=== PATIENT | female | born 1960 | race Caucasian/White ===

== ENCOUNTER → 2017-05-23 | Outpatient (CLI) | payer BC ==
--- NOTE | 2017-05-23 10:46 | XR ---
EXAMINATION TYPE: XR chest 2V DATE OF EXAM: 05/23/2017 COMPARISON: 05/06/2015 TECHNIQUE: PA and lateral views submitted. HISTORY: Chest pain FINDINGS: The lungs are clear and there is no pneumothorax, pleural effusion, or focal pneumonia. Vague nodul e in the right midlung. Atherosclerotic change aorta IMPRESSION: 1. No acute process. Vague nodule in the right midlung. This likely accounts for the nodule seen by c hest CT.
== END ==
LOC: RADXRMAIN 10:11
PROVIDERS: ATTEND Family Medicine
DX: R91.1 Solitary pulmonary nodule (principal)
CPT/HCPCS: 71020

== ENCOUNTER → 2017-08-15 | Outpatient (CLI) | payer BC ==
--- NOTE | 2017-08-18 10:38 | MM ---
Reason for exam: screening (asymptomatic). Last mammogram was performed 1 year and 10 months ago. History: Patient is postmenopausal. Physical Findings: A clinical breast exam by your physician is recommended on an annual basis and results should be correlated with mammographic findings. MG Screening Mammo w CAD Bilateral CC and MLO view(s) were taken. Prior study comparison: October 09, 2015, mammogram, performed at [facility]. The breast tissue is heterogeneously dense. This may lower the sensitivity of mammography. Developing asymmetry anterior depth inner lower quadrant. ASSESSMENT: Incomplete: need additional imaging evaluation, BI-RAD 0 RECOMMENDATION: Special view mammogram of the left breast. If lesion persists on supplemental views, image directed ultrasound is recommended. [facility] will attempt to contact patient to return for supplemental views and ultrasound if indicated.
== END | disposition home or self-care (01) ==
LOC: RADMAMWWP 09:59
PROVIDERS: ATTEND Family Medicine
DX: Z12.31 Encounter for screening mammogram for malignant neoplasm of breast (principal)
CPT/HCPCS: 77067

== ENCOUNTER → 2017-08-26 | Outpatient (CLI) | payer BC ==
--- NOTE | 2017-08-26 14:23 | MM ---
Reason for exam: additional evaluation requested from abnormal screening. Last mammogram was performed less than 1 month ago. History: Patient is postmenopausal. Physical Findings: Nurse did not find any significant physical abnormalities on exam. MG Work Up Mamm w CAD LT CC and MLO view(s) were taken of the left breast. Prior study comparison: August 15, 2017, bilateral MG screening mammo w CAD. October 09, 2015, mammogram, performed at [facility]. The breast tissue is heterogeneously dense. This may lower the sensitivity of mammography. Asymmetric breast tissue persists. These results were verbally communicated with the patient and result sheet given to the patient on 08/26/17. ASSESSMENT: Incomplete: need additional imaging evaluation, BI-RAD 0 RECOMMENDATION: Ultrasound of the left breast.
--- NOTE | 2017-08-26 14:25 | USB ---
Reason for exam: additional evaluation requested from abnormal screening. History: Patient is postmenopausal. US Breast Workup Limited LT Left breast ultrasound demonstrates no cystic or solid lesion seen. These results were verbally communicated with the patient and result sheet given to the patient on 08/26/17. ASSESSMENT: Negative, BI-RAD 1 RECOMMENDATION: Follow-up diagnostic mammogram of the left breast in 6 months.
== END | disposition home or self-care (01) ==
LOC: RADMAMWWP 13:14
PROVIDERS: ATTEND Family Medicine
DX: R92.8 Other abnormal and inconclusive findings on diagnostic imaging of breast (principal)
CPT/HCPCS: 77065

== ENCOUNTER → 2018-05-23 | Outpatient (CLI) | payer BC ==
[~2018-05-23] MED LIST: REGADENOSON 0.4 MG/5 ML SYRINGE IV ONE
--- NOTE | 2018-05-23 11:31 | NM ---
EXAMINATION TYPE: NM stress lexiscan cardiolite DATE OF EXAM: 05/23/2018 COMPARISON: 05/07/2015 HISTORY: Chest pain TECHNIQUE: After the intravenous administration of 10.3 mCi Tc 99m Sestamibi - Cardiolite resting SP ECT images acquired 60 minutes post injection. The patient received 0.4mg Lexiscan, 24.9 mCi Tc 99m Sestamibi - Stress images obtained [address] injection FINDINGS: Review of stress and rest SPECT images demonstrates reduced uptake involving the apex of the myocardi um which appears fixed. Tiny area of stress-induced reversibility not excluded.. Gated analysis show s normal wall motion with an estimated left ventricular ejection fraction of 46 %. IMPRESSION: 1. There now appears to be a fixed area of perfusion abnormality involving the apex of the myocardium suggestive of previous infarction. A tiny area of reversibility is not entirely excluded. Correlate clinically. 2. Ejection fraction is 46%.
== END | disposition home or self-care (01) ==
LOC: RADNMMAIN 07:47
PROVIDERS: ATTEND Internal Medicine Interventional Cardiology
DX: I25.10 Atherosclerotic heart disease of native coronary artery without angina pectoris (principal); I10 Essential (primary) hypertension
CPT/HCPCS: 93017; 78452; A9500; J2785

== ENCOUNTER → 2018-05-25 | Outpatient (CLI) | payer BC ==
--- NOTE | 2018-05-24 11:21 | P.STRESS ---
- Stress Test Note Stress Test Results/Findings: Exam Performed: Exam Date: Reason for Exam: Height: Weight: Protocol: Stage: Duration of Exercise: Resting Heart Rate: Resting Blood Pressure: Maximum Achieved Heart Rate: Maximum Achieved Blood Pressure: 85% PMHR: 100% PMHR: METS: Technologist Comment: Stress Test Results/Findings: Baseline heart rate 63 beats a minute Baseline blood pressure 119/92 mmHg Baseline twelve-lead ECG shows normal sinus rhythm normal chronic intervals Patient received Lexiscan infusion per protocol there was no ECG is for ischemia and arrhythmias are noted new proportional B report separately
--- NOTE | 2018-05-26 10:12 | ECHOF ---
Referral Reason:I10 Hypertension, CAD MEASUREMENTS -------- HEIGHT: 170.2 cm WEIGHT: 84.4 kg BP: 119/66 RVIDd: 2.7 cm (< 3.3) IVSd: 1.2 cm (0.6 - 1.1) LVIDd: 4.3 cm (3.9 - 5.3) LVPWd: 1.2 cm (0.6 - 1.1) IVSs: 1.8 cm LVIDs: 2.6 cm LVPWs: 1.3 cm LA Diam: 3.2 cm (2.7 - 3.8) LAESV Index (A-L): 27.23 ml/m Ao Diam: 3.1 cm (2.0 - 3.7) AV Cusp: 2.1 cm (1.5 - 2.6) MV EXCURSION: 13.991 mm (> 18.000) MV EF SLOPE: 62 mm/s (70 - 150) EPSS: 0.6 cm MV E Darrell: 0.99 m/s MV DecT: 232 ms MV A Darrell: 0.91 m/s MV E/A Ratio: 1.10 RAP: 5.00 mmHg RVSP: 21.56 mmHg FINDINGS -------- Sinus rhythm. This was a technically adequate study. The left ventricular size is normal. There is borderline concentric left ventricular hypertrophy. Overall left ventricular systolic function is normal with, an EF between 55 - 60 %. Sigmoid shaped septum with focal hypertrophy of the basal septum. The remaining wall thickness is normal. The right ventricle is normal in size. Normal LA size by volume 22+/-6 ml/m2. The right atrium is normal in size. The aortic valve is trileaflet and appears structurally normal. The mitral valve is normal. Mild tricuspid regurgitation present. Right ventricular systolic pressure is normal at < 35 mmHg. Trace/mild (physiologic) pulmonic regurgitation. The aortic root size is normal. Normal inferior vena cava with normal inspiratory collapse consistent with estimated right atrial pre ssure of 5 mmHg. There is no pericardial effusion. CONCLUSIONS -------- 1. Sinus rhythm. 2. This was a technically adequate study. 3. The left ventricular size is normal. 4. There is borderline concentric left ventricular hypertrophy. 5. Overall left ventricular systolic function is normal with, an EF between 55 - 60 %. 6. Sigmoid shaped septum with focal hypertrophy of the basal septum. The remaining wall thickness is normal. 7. The right ventricle is normal in size. 8. Normal LA size by volume 22+/-6 ml/m2. 9. The right atrium is normal in size. 10. The aortic valve is trileaflet and appears structurally normal. 11. The mitral valve is normal. 12. Mild tricuspid regurgitation present. 13. Right ventricular systolic pressure is normal at < 35 mmHg. 14. Trace/mild (physiologic) pulmonic regurgitation. 15. The aortic root size is normal. 16. Normal inferior vena cava with normal inspiratory collapse consistent with estimated right atrial pressure of 5 mmHg. 17. There is no pericardial effusion. PARTITION ASSEMBLY MACHINE OPERATOR: Natali Melendez RDCS
== END | disposition home or self-care (01) ==
LOC: RADECHMAIN 13:02
PROVIDERS: ATTEND Internal Medicine Interventional Cardiology
DX: I07.1 Rheumatic tricuspid insufficiency (principal); I37.1 Nonrheumatic pulmonary valve insufficiency
CPT/HCPCS: 93306

== ENCOUNTER → 2018-12-12 | Outpatient (CLI) | payer BC ==
--- NOTE | 2018-12-12 15:56 | US ---
EXAMINATION TYPE: US abdomen complete DATE OF EXAM: 12/12/2018 COMPARISON: CLINICAL HISTORY: R18.8 Other ascites. Abdomen pressure, NPO, hx liver cyst EXAM MEASUREMENTS: Liver Length: 16.8 cm Gallbladder Wall: 0.2 cm CHD: 0.6 cm Spleen: 8.3 cm Right Kidney: 8.9 x 3.8 x 3.6 cm Left Kidney: 9.2 x 4.3 x 4.8 cm Pancreas: Head and body the pancreas is normal. Tail of pancreas obscured by bowel gas. Liver: right lobe anterior cystic appearing cluster visualized - 2.3 x 2.7 x 1.8 cm Gallbladder: wnl Evidence for sonographic Saldivar's sign: neg CBD: Obscured by overlying bowel gas CHD: wnl Spleen: wnl Right Kidney: wnl Left Kidney: appears lobular in appearance Upper IVC: wnl Abd Aorta: Proximal not visualized due to overlying bowel gas. No AAA visualized. IMPRESSION: 1. Visualized abdomen ultrasound is unremarkable.
== END | disposition home or self-care (01) ==
LOC: RADUSWWP 07:43
PROVIDERS: ATTEND Family Medicine
DX: R18.8 Other ascites (principal); R10.9 Unspecified abdominal pain; Z86.03 Personal history of neoplasm of uncertain behavior
CPT/HCPCS: 76700

== ENCOUNTER → 2019-10-04 | Outpatient (CLI) | payer BC ==
--- NOTE | 2019-10-04 10:47 | US ---
EXAMINATION TYPE: US gallbladder DATE OF EXAM: 10/04/2019 COMPARISON: 12/12/2018 ultrasound CLINICAL HISTORY: R94.5 elevated liver enzymes. EXAM MEASUREMENTS: Liver Length: 15.5 cm Gallbladder Wall: 0.2 cm CBD: 0.6 cm Right Kidney: 9.1 x 3.2 x 3.3 cm Pancreas: wnl Liver: Right lobe cystic appearing lesion - 2.4 x 1.9 x 3.0 cm. Previous measurement 2.3 x 1.8 x 2.7 cm. This has good through transmission. The jackson are not smooth cannot be classified as a simple cy st. Monitoring is recommended. Gallbladder: wnl Evidence for sonographic Saldivar's sign: neg CBD: wnl Right Kidney: No hydronephrosis or masses seen IMPRESSION: 1. Cystlike structure within the right lobe liver. Jackson are not smooth this cannot be simple cyst. F ollow-up monitoring is recommended.
== END | disposition home or self-care (01) ==
LOC: RADUSWWP 10:13
PROVIDERS: ATTEND Family Medicine
DX: R94.5 Abnormal results of liver function studies (principal)
CPT/HCPCS: 76705

== ENCOUNTER → 2020-03-11 | Outpatient (CLI) | payer BC | END | disposition home or self-care (01) | LOC: LABWHC1 03-10 14:39 | PROVIDERS: ATTEND Pediatrics Pediatric Infectious Diseases | DX: Z20.828 Contact with and (suspected) exposure to other viral communicable diseases (principal) | CPT/HCPCS: 87635; U0003; C9803 ==

== ENCOUNTER → 2020-03-12 | Outpatient (CLI) | payer BC | END | disposition home or self-care (01) | LOC: LABWHC1 14:00 | PROVIDERS: ATTEND Pediatrics Pediatric Infectious Diseases | DX: Z11.59 Encounter for screening for other viral diseases (principal) | CPT/HCPCS: 87635; C9803 ==

== ENCOUNTER 2020-06-16 21:41 | Emergency (ER) | payer BC ==
[2020-06-16 21:48] VITALS: BP 193/79
--- NOTE | 2020-06-16 22:12 | ED ---
Abdominal Pain HPI - General Chief Complaint: Abdominal Pain Stated Complaint: Abd pain Time Seen by Provider: 06/16/20 22:07 Source: patient Mode of arrival: ambulatory Limitations: no limitations - History of Present Illness Initial Comments: Betsey is a C1-year-old female who presents ER today for evaluation of abdominal pain. Patient has a history of open abdominal surgery approximately 4 years ago to remove a non-malignant mass. Patient has a large scar down the middle of her abdomen and states that for the past 2 months she's noted the development of a hernia at the top of the scar. For the past week she's noted that the hernia area seems to get tender however today the pain is significantly worsened. She reports she has episodes of pain that are severe stabbing she can't move when these episodes of pain happened. She reports her last bowel movement was earlier today and was normal in color caliber and consistency. she has had no vomiting. - Related Data Home Medications Medication Instructions Recorded Confirmed lisinopriL [Prinivil] 20 mg PO DAILY 01/20/16 06/16/20 Atorvastatin [Lipitor] 80 mg PO DAILY 06/16/20 06/16/20 Ezetimibe [Zetia] 10 mg PO DAILY 06/16/20 06/16/20 Metoprolol Succinate [Toprol XL] 100 mg PO DAILY 06/16/20 06/16/20 Vitamin B Complex 1 cap PO DAILY 06/16/20 06/16/20 Previous Rx's Medication Instructions Recorded Aspirin EC [Ecotrin Low Dose] 81 mg PO DAILY tablet. 05/07/15 Clopidogrel [Plavix] 75 mg PO DAILY tab 05/07/15 hydroCHLOROthiazide [Hydrodiuril] 25 mg PO DAILY tab 05/07/15 Allergies Allergy/AdvReac Type Severity Reaction Status Date / Time No Known Allergies Allergy Verified 06/16/20 22:19 Review of Systems ROS Statement: Those systems with pertinent positive or pertinent negative responses have been documented in the HPI. ROS Other: All systems not noted in ROS Statement are negative. Past Medical History Past Medical History: CVA/TIA, Hyperlipidemia, Hypertension, Myocardial Infarction ([place]) Additional Past Medical History / Comment(s): [place] 2011, CHILD HAD A MURMUR,SCIATICA,HIATAL HERNIA, RT CAROTID ARTERY HAS BLOCKAGE BUT NO SX YET, DR ALEX. CVA 2014 Last Myocardial Infarction Date:: 2000 History of Any Multi-Drug Resistant Organisms: None Reported Past Surgical History: Adenoidectomy, Heart Catheterization With Stent, Tonsillectomy, Tubal Ligation Additional Past Surgical History / Comment(s): HEART CATH WITH STENT 2000. HEART CATH 2001, 2000 HEART CATH AT [place], STARTED JOHNS TOTAL OF 3 STENTS Past Anesthesia/Blood Transfusion Reactions: No Reported Reaction Additional Past Anesthesia/Blood Transfusion Reaction / Comment(s): CLAUSTERPHOBIA Date of Last Stent Placement:: 2000 Past Psychological History: No Psychological Hx Reported Past Alcohol Use History: None Reported Past Drug Use History: None Reported - Past Family History Mother Family Medical History: Cancer, Congestive Heart Failure (CHF), CVA/TIA, Hyperlipidemia, Hypertension Additional Family Medical History / Comment(s): COLON CANCER, OBESITY Father Family Medical History: Myocardial Infarction ([place]) Additional Family Medical History / Comment(s): AGE 54 FROM [place] General Exam - General Exam Comments Initial Comments: Physical Exam GENERAL: Patient is well-developed and well-nourished. Patient is nontoxic and well-hydrated Appears mildly uncomfortable HENT: Normocephalic, Atraumatic. EYES: PERRL, EOMI PULMONARY: Unlabored respirations CARDIOVASCULAR: RRR Warm and well perfused extremities ABDOMEN: Firm incisional hernia at superior edge of surgical scar - no overlying skin color changes SKIN: No rashes or bruising : Deferred NEUROLOGIC: Alert and oriented Normal speech Normal gait MUSCULOSKELETAL: Moving all extremities with no apparent injury PSYCHIATRIC: No SI/HI Limitations: no limitations Course Vital Signs 06/16/20 06/17/20 21:46 01:46 Temperature 98.6 F 98.7 F Pulse Rate 91 80 Respiratory 18 16 Rate Blood Pressure 193/79 193/79 O2 Sat by Pulse 96 95 Oximetry Medical Decision Making - Medical Decision Making she was seen and evaluated, history was obtained from patient History and physical exam are concerning for incarcerated incisional hernia Labs and CT were ordered CT confirms an incarcerated incisional hernia Patient given Dilaudid ice was applied to the hernia, Patient was laid flat and the hernia was able to be reduced with minimal difficulty Patient was advised to wear an abdominal binder, follow up with general surgeon for plans for surgical repair he patient was educated on how to reduce her hernia and expressed understanding All questions pertaining care were answered return parameters were discussed the patient was discharged home in stable condition - Lab Data Result diagrams: 06/16/20 22:49 06/16/20 22:49 Lab Results 06/16/20 06/16/20 06/16/20 Range/Units 22:49 22:49 22:49 WBC 12.7 H (3.8-10.6) k/uL RBC 4.76 (3.80-5.40) m/uL Hgb 12.0 (11.4-16.0) gm/dL Hct 37.9 (34.0-46.0) % MCV 79.5 L (80.0-100.0) fL MCH 25.3 (25.0-35.0) pg MCHC 31.8 (31.0-37.0) g/dL RDW 14.7 (11.5-15.5) % Plt Count 313 (150-450) k/uL Neutrophils % 66 % Lymphocytes % 23 % Monocytes % 4 % Eosinophils % 5 % Basophils % 1 % Neutrophils # 8.4 H (1.3-7.7) k/uL Lymphocytes # 2.9 (1.0-4.8) k/uL Monocytes # 0.5 (0-1.0) k/uL Eosinophils # 0.7 (0-0.7) k/uL Basophils # 0.1 (0-0.2) k/uL Sodium 139 (137-145) mmol/L Potassium 4.0 (3.5-5.1) mmol/L Chloride 106 (98-107) mmol/L Carbon Dioxide 25 (22-30) mmol/L Anion Gap 8 mmol/L BUN 23 H (7-17) mg/dL Creatinine 0.96 (0.52-1.04) mg/dL Est GFR (CKD-EPI)AfAm 74 (>60 ml/min/1.73 sqM) Est GFR (CKD-EPI)NonAf 64 (>60 ml/min/1.73 sqM) Glucose 118 H (74-99) mg/dL Plasma Lactic Acid Paulie (0.7-2.0) mmol/L Calcium 9.3 (8.4-10.2) mg/dL Total Bilirubin 0.4 (0.2-1.3) mg/dL AST 25 (14-36) U/L ALT 16 (4-34) U/L Alkaline Phosphatase 139 H (38-126) U/L Total Protein 7.0 (6.3-8.2) g/dL Albumin 4.0 (3.5-5.0) g/dL Lipase 321 H (23-300) U/L Urine Color Yellow Urine Appearance Clear (Clear) Urine pH 5.5 (5.0-8.0) Ur Specific Pierce 1.021 (1.001-1.035) Urine Protein Negative (Negative) Urine Glucose (UA) Negative (Negative) Urine Ketones Negative (Negative) Urine Blood Negative (Negative) Urine Nitrite Negative (Negative) Urine Bilirubin Negative (Negative) Urine Urobilinogen <2.0 (<2.0) mg/dL Ur Leukocyte Esterase Trace H (Negative) Urine RBC <1 (0-5) /hpf Urine WBC 2 (0-5) /hpf Ur Squamous Epith Cells 1 (0-4) /hpf Hyaline Casts 1 (0-2) /lpf Urine Mucus Rare H (None) /hpf 06/16/20 Range/Units 22:49 WBC (3.8-10.6) k/uL RBC (3.80-5.40) m/uL Hgb (11.4-16.0) gm/dL Hct (34.0-46.0) % MCV (80.0-100.0) fL MCH (25.0-35.0) pg MCHC (31.0-37.0) g/dL RDW (11.5-15.5) % Plt Count (150-450) k/uL Neutrophils % % Lymphocytes % % Monocytes % % Eosinophils % % Basophils % % Neutrophils # (1.3-7.7) k/uL Lymphocytes # (1.0-4.8) k/uL Monocytes # (0-1.0) k/uL Eosinophils # (0-0.7) k/uL Basophils # (0-0.2) k/uL Sodium (137-145) mmol/L Potassium (3.5-5.1) mmol/L Chloride (98-107) mmol/L Carbon Dioxide (22-30) mmol/L Anion Gap mmol/L BUN (7-17) mg/dL Creatinine (0.52-1.04) mg/dL Est GFR (CKD-EPI)AfAm (>60 ml/min/1.73 sqM) Est GFR (CKD-EPI)NonAf (>60 ml/min/1.73 sqM) Glucose (74-99) mg/dL Plasma Lactic Acid Paulie 1.2 (0.7-2.0) mmol/L Calcium (8.4-10.2) mg/dL Total Bilirubin (0.2-1.3) mg/dL AST (14-36) U/L ALT (4-34) U/L Alkaline Phosphatase (38-126) U/L Total Protein (6.3-8.2) g/dL Albumin (3.5-5.0) g/dL Lipase (23-300) U/L Urine Color Urine Appearance (Clear) Urine pH (5.0-8.0) Ur Specific Pierce (1.001-1.035) Urine Protein (Negative) Urine Glucose (UA) (Negative) Urine Ketones (Negative) Urine Blood (Negative) Urine Nitrite (Negative) Urine Bilirubin (Negative) Urine Urobilinogen (<2.0) mg/dL Ur Leukocyte Esterase (Negative) Urine RBC (0-5) /hpf Urine WBC (0-5) /hpf Ur Squamous Epith Cells (0-4) /hpf Hyaline Casts (0-2) /lpf Urine Mucus (None) /hpf Disposition Clinical Impression: Incisional hernia Disposition: HOME SELF-CARE Condition: Stable Additional Instructions: You have a hernia at the top of your incision, this will likely require surgical repair Avoid heavy lifting You can wear a girdle or abdominal binder for support If the hernia pops out, lay flat with knees bent and attempt to push it back in Return to the ER for any worsening pain or inability to reduce the hernia when it is pushed out Is patient prescribed a controlled substance at d/c from ED?: No Referrals: Rachel Montoya DO [Primary Care Provider] - 1-2 days Aureliano French MD [STAFF PHYSICIAN] - 1-2 days Lien Kemp MD [STAFF PHYSICIAN] - 1-2 days Arnaldo Lan MD [Medical Doctor] - 1-2 days
[2020-06-16] MEDS ORDERED: SODIUM CHLORIDE 0.9% 1,000 ML IV STA (22:18)
[2020-06-16 23:01] LABS: Basophils # (A) 0.1 k/uL (0-0.2); Basophils % (A) 1 %; Eosinophils # (A) 0.7 k/uL (0-0.7); Eosinophils % (A) 5 %; HCT 37.9 % (34.0-46.0); Lymphocytes # (A) 2.9 k/uL (1.0-4.8); Lymphocytes % (A) 23 %; MCH 25.3 pg (25.0-35.0); MCHC 31.8 g/dL (31.0-37.0); MCV 79.5 fL (80.0-100.0); Monocytes # (A) 0.5 k/uL (0-1.0); Monocytes % (A) 4 %; Neutrophils # (A) 8.4 k/uL (1.3-7.7); Neutrophils % (A) 66 %; Platelet Count 313 k/uL (150-450); RBC 4.76 m/uL (3.80-5.40); RDW 14.7 % (11.5-15.5); WBC 12.7 k/uL (3.8-10.6)
[2020-06-16 23:10] LABS: Appearance,Urine Clear (Clear); Bilirubin,Urine Negative (Negative); Blood,Urine Negative (Negative); Color,Urine Yellow; Glucose,Urine (UA) Negative (Negative); Hyaline Casts,Urine 1 /lpf (0-2); Ketones,Urine Negative (Negative); Leukocyte Esterase,Urine Trace (Negative); Mucus,Urine Rare /hpf; Nitrite,Urine Negative (Negative); PH, Urine 5.5 (5.0-8.0); Protein,Urine Negative (Negative); RBC,Urine <1 /hpf (0-5); Specific Gravity,Urine 1.021 (1.001-1.035); Squamous Epithelial Cell,Urine 1 /hpf (0-4); Urobilinogen,Urine <2.0 mg/dL (<2.0); WBC,Urine 2 /hpf (0-5)
[2020-06-16 23:11] LABS: Calcium 9.3 mg/dL (8.4-10.2); Total Bilirubin 0.4 mg/dL (0.2-1.3)
--- NOTE | 2020-06-16 23:45 | CT ---
EXAMINATION TYPE: CT abdomen pelvis w con DATE OF EXAM: 06/16/2020 COMPARISON: 05/06/2016 HISTORY: Abdominal pain CT DLP: mGycm Automated exposure control for dose reduction was used. CONTRAST: Performed , patient injected with mL of . Contrast was Isovue 100 mL. Lung bases show a 2 cm partly calcified pleural-based mass in the anterior right middle lobe. There i s prominent pericardial fat pad on the right side. There is no pleural effusion. There is moderate hi atal hernia. Heart size is normal. The stomach has normal size. There is 3 cm cyst in the lateral right lobe of the liver. Gallbladder appears normal. The bile ducts are not dilated. Spleen is intact. There is no pancreatic mass. There is no adrenal mass. Kidneys show satisfactory contrast opacification. There is no hydronephrosi s. There is no inguinal hernia. Bladder distends smoothly. There is no free fluid in the pelvis. Ther e are scattered sigmoid diverticula without sign of diverticulitis. Appendix appears to be posterior and appears normal. There is no ascites or free air. There is incarcerated epigastric ventral hernia that contains transverse colon. I do not see definite sign of a bowel obstruction. There are some inflammatory changes in the fat surrounding the hernia s ac. Abdominal aorta is atheromatous. Lumbar vertebra have normal alignment. There is no compression fract ure. Bony pelvis is intact. Hip joints are intact. IMPRESSION: Incarcerated epigastric ventral hernia containing transverse colon. No definite evidence for a bowel obstruction. Hernia appears new compared to old exam. Pleural-based mass in the right middle lobe on the chest wall that is stable compared to 2016 and the refore benign. Mild colonic diverticulosis without diverticulitis.
[2020-06-16] MEDS ORDERED: HYDROmorphone 0.5 MG/0.5 ML SYRINGE IVP STA (23:49)
[2020-06-16] MEDS ORDERED: HYDROmorphone 1 MG/ML 1 ML SYRINGE IVP STA (23:57)
[2020-06-17] MEDS ORDERED: cloNIDine HCL 0.1 MG TAB PO STA (01:03)
[2020-06-17 01:47] VITALS: PULSE 80; RESP 16; TEMP 98.7
== END 2020-06-17 01:47 | disposition home or self-care (01) ==
LOC: EC 21:41
DX: K43.0 Incisional hernia with obstruction, without gangrene (principal); I10 Essential (primary) hypertension; E78.5 Hyperlipidemia, unspecified; I25.2 Old myocardial infarction; Z79.899 Other long term (current) drug therapy; Z86.73 Personal history of transient ischemic attack (TIA), and cerebral infarction without residual deficits; Z98.51 Tubal ligation status
CPT/HCPCS: 36415; 80053; 83605; 83690; 85025; 81001; 74177; 99284; 96374; 96361; J1170; Q9967

== ENCOUNTER 2020-09-17 16:08 | Emergency (ER) | payer BC, OTHER ==
[2020-09-17 16:26] VITALS: BP 164/110; PULSE 77; RESP 18; TEMP 98.7
--- NOTE | 2020-09-17 17:07 | ED ---
General Adult HPI - General Chief complaint: Extremity Injury, Upper Stated complaint: hand injury [facility] Time Seen by Provider: 09/17/20 16:39 Source: patient, RN notes reviewed, old records reviewed Mode of arrival: ambulatory Limitations: no limitations - History of Present Illness Initial comments: 60-year-old female presents for evaluation of right hand injury. Patient states she got her right hand and wrist caught in an elevator and did need to pull her hand from the doors. She has pain predominantly on the palmar side of her wrist and proximal hand. Patient states she is on aspirin and Plavix with history of CAD and CVA in the past. She denies any other injury. - Related Data Home Medications Medication Instructions Recorded Confirmed lisinopriL [Prinivil] 20 mg PO DAILY 01/20/16 06/16/20 Atorvastatin [Lipitor] 80 mg PO DAILY 06/16/20 06/16/20 Ezetimibe [Zetia] 10 mg PO DAILY 06/16/20 06/16/20 Metoprolol Succinate [Toprol XL] 100 mg PO DAILY 06/16/20 06/16/20 Vitamin B Complex 1 cap PO DAILY 06/16/20 06/16/20 Previous Rx's Medication Instructions Recorded Aspirin EC [Ecotrin Low Dose] 81 mg PO DAILY tablet. 05/07/15 Clopidogrel [Plavix] 75 mg PO DAILY tab 05/07/15 hydroCHLOROthiazide [Hydrodiuril] 25 mg PO DAILY tab 05/07/15 Allergies Allergy/AdvReac Type Severity Reaction Status Date / Time No Known Allergies Allergy Verified 09/17/20 16:24 Review of Systems ROS Statement: Those systems with pertinent positive or pertinent negative responses have been documented in the HPI. ROS Other: All systems not noted in ROS Statement are negative. Past Medical History Past Medical History: CVA/TIA, Hyperlipidemia, Hypertension, Myocardial Infarction ([place]) Additional Past Medical History / Comment(s): [place] 2011, CHILD HAD A MURMUR,SCIATICA,HIATAL HERNIA, RT CAROTID ARTERY HAS BLOCKAGE BUT NO SX YET, DR ALEX. CVA 2014 Last Myocardial Infarction Date:: 2000 History of Any Multi-Drug Resistant Organisms: None Reported Past Surgical History: Adenoidectomy, Heart Catheterization With Stent, Tonsillectomy, Tubal Ligation Additional Past Surgical History / Comment(s): HEART CATH WITH STENT 2000. HEART CATH 2001, 2000 HEART CATH AT [place],PT STARTED [facility]OH[facility] TOTAL OF 3 STENTS Past Anesthesia/Blood Transfusion Reactions: No Reported Reaction Additional Past Anesthesia/Blood Transfusion Reaction / Comment(s): CL AUSTERPHOBIA Date of Last Stent Placement:: 2000 Past Psychological History: No Psychological Hx Reported Smoking Status: Never smoker Past Alcohol Use History: None Reported Past Drug Use History: None Reported - Past Family History Mother Family Medical History: Cancer, Congestive Heart Failure (CHF), CVA/TIA, Hyperlipidemia, Hypertension Additional Family Medical History / Comment(s): COLON CANCER, OBESITY Father Family Medical History: Myocardial Infarction ([place]) Additional Family Medical History / Comment(s): AGE 54 FROM [place] General Exam Limitations: no limitations General appearance: alert, in no apparent distress Head exam: Present: atraumatic, normocephalic Eye exam: Present: normal appearance, PERRL ENT exam: Present: normal exam Neck exam: Present: normal inspection. Absent: tenderness, meningismus Respiratory exam: Present: normal lung sounds bilaterally. Absent: respiratory distress, wheezes Cardiovascular Exam: Present: regular rate, normal rhythm GI/Abdominal exam: Absent: distended Extremities exam: Present: joint swelling (There is swelling and hematoma on the dorsal surface of the wrist and proximal hand, no laceration or pleural effusion. She has bony tenderness over the metacarpals on the plantar surface, no snuffbox tenderness, no gross deformity.) Course Vital Signs 09/17/20 16:24 Temperature 98.7 F Pulse Rate 77 Respiratory 18 Rate Blood Pressure 164/110 O2 Sat by Pulse 98 Oximetry Procedures - Orthopedic Splinting/Casting Injury #1 Side: right Upper Extremity Injury Location: wrist Upper Extremity Immobilizer: Shailesh wrap Additional Comments: Patient is neurovascularly intact both before and after applying Shailesh wrap Medical Decision Making - Medical Decision Making 60-year-old female with right hand injury, crush injury and elevated worse. There is swelling and hematoma on the dorsal surface of the hand just distal to the wrist. She has normal sensation distally, normal cap refill, normal pulses. No snuffbox tenderness. X-rays performed these are negative for acute bony abnormality. Patient is placed in an Shailesh wrap. Disposition Clinical Impression: Contusion of hand, right, Wrist sprain Disposition: HOME SELF-CARE Condition: Good Instructions (If sedation given, give patient instructions): Wrist Injury (ED), Hand Sprain (ED), Contusion in Adults (ED) Is patient prescribed a controlled substance at d/c from ED?: No Referrals: Rachel Montoya DO [Primary Care Provider] - 1-2 days Time of Disposition: 17:07
--- NOTE | 2020-09-17 17:14 | XR ---
RESULT: HISTORY: trauma with pain. TECHNIQUE: 3 views of the right hand. 3 views of the right wrist. COMPARISON: None. FINDINGS: There is no acute fracture or dislocation. There are moderate degenerative changes of the thumb basal joints. Otherwise scattered mild elsewhere. No radiopaque foreign body. IMPRESSION: No acute osseous abnormality.
== END 2020-09-17 17:35 | disposition home or self-care (01) ==
LOC: EC 16:08
DX: S63.501A Unspecified sprain of right wrist, initial encounter (principal); I10 Essential (primary) hypertension; E78.5 Hyperlipidemia, unspecified; I25.2 Old myocardial infarction; I25.10 Atherosclerotic heart disease of native coronary artery without angina pectoris; Z79.82 Long term (current) use of aspirin; Z79.02 Long term (current) use of antithrombotics/antiplatelets; Z79.899 Other long term (current) drug therapy; Z86.73 Personal history of transient ischemic attack (TIA), and cerebral infarction without residual deficits; Z95.5 Presence of coronary angioplasty implant and graft; W23.0XXA Caught, crushed, jammed, or pinched between moving objects, initial encounter; Y92.69 Other specified industrial and construction area as the place of occurrence of the external cause; Y99.0 Civilian activity done for income or pay
CPT/HCPCS: 99284

== ENCOUNTER → 2020-09-25 | Outpatient (CLI) | payer OTHER ==
--- NOTE | 2020-09-25 15:12 | XR ---
EXAMINATION TYPE: XR shoulder complete 3 views RT, XR hand complete 3 views RT DATE OF EXAM: 09/25/2020 Comparison: 09/17/2020 Clinical History: 60-year-old female S67.21, S43.401D Findings: Right shoulder: AC joint appears intact. Subacromial space preserved. No tendinous or bursal calcifications. No acute fracture, subluxation, or dislocation seen. Right hand: Mild degenerative change at the triscaphe joint. No acute fracture, subluxation, or dislocation seen. Moderate osteoarthritic change at the second DIP joint. Impression: 1. Right shoulder: No acute osseous abnormality seen. 2. Right hand: No acute osseous abnormality seen.
== END | disposition home or self-care (01) ==
LOC: RADXRMAIN 14:12
PROVIDERS: ATTEND Emergency Medicine
DX: S67.21XD Crushing injury of right hand, subsequent encounter (principal); S43.401D Unspecified sprain of right shoulder joint, subsequent encounter

== ENCOUNTER → 2021-02-24 | Outpatient (CLI) | payer BC ==
[2021-02-24 15:29] LABS: HCT 37.3 % (34.0-46.0); MCH 25.8 pg (25.0-35.0); MCHC 32.3 g/dL (31.0-37.0); Mean Platelet Volume 7.1; Platelet Count 327 k/uL (150-450); RBC 4.66 m/uL (3.80-5.40); RDW 14.5 % (11.5-15.5); WBC 8.9 k/uL (3.8-10.6)
[2021-02-24 16:13] LABS: Albumin 4.2 g/dL (3.5-5.0); Calcium 9.6 mg/dL (8.4-10.2); Potassium 3.9 mmol/L (3.5-5.1); Total Bilirubin 0.3 mg/dL (0.2-1.3); Total Protein 7.1 g/dL (6.3-8.2)
--- NOTE | 2021-02-24 20:05 | XR ---
Lumbar spine HISTORY: Degenerative disc disease, low back pain 3 views of the lumbar spine, no comparisons Bone mineralization is reduced which may limit sensitivity. Lumbar vertebral bodies show preserved he ight and alignment. Loss of disc height is greatest at L5-S1 with associated vacuum disc phenomenon. There is multilevel spondylosis. Sclerosis is present in the lower lumbar spine in the posterior jamul ents. Atherosclerotic vascular calcifications are present in the aortoiliac distribution. IMPRESSION: Degenerative disc disease and facet arthropathy, osteopenia.
[2021-02-25 01:27] LABS: Hemoglobin A1C 6.5 % (4.0-6.0)
== END | disposition home or self-care (01) ==
LOC: RADXRMAIN 14:32
PROVIDERS: ATTEND Psychiatry & Neurology Clinical Neurophysiology
DX: M51.36 Other intervertebral disc degeneration, lumbar region (principal); M85.88 Other specified disorders of bone density and structure, other site; M47.896 Other spondylosis, lumbar region
CPT/HCPCS: 72100; 80053; 82607; 83036; 85027